=== PATIENT | female | born 1935 | race Asian ===

== ENCOUNTER 2019-01-31 15:26 | Emergency (ER) | payer MEDICAID, MEDICARE ==
[2019-01-31] MEDS ORDERED: ACETAMINOPHEN 325 MG TABLET PO STA (15:49)
--- NOTE | 2019-01-31 15:50 | ED Physician Documentation ---
PD HPI CHEST PAIN - Stated complaint Stated Complaint: ABD PX - Chief complaint Chief Complaint: Resp - History obtained from History obtained from: Patient, Family (daughter) - History of Present Illness Timing - onset: Yesterday (She has had sharp right-sided low chest pain that is worse with coughing and deep breathing since yesterday. She is somewhat short of breath with it. She denies calf pain or pedal edema. She does have a mild cough. No fevers. 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 : None HEENT: None Psych: None Musculoskeletal: None Derm: None - Past Surgical History Past Surgical History: No - Present Medications Home Medications: Ambulatory Orders Medication Instructions Recorded Confirmed No Known Home Medications 01/31/19 01/31/19 - Allergies Allergies/Adverse Reactions: Allergies Allergy/AdvReac Type Severity Reaction Status Date / Time No Known Drug Allergies Allergy Verified 01/31/19 15:40 - Social History Does the pt smoke?: No Smoking Status: Never smoker Does the pt drink ETOH?: No Does the pt have substance abuse?: No - Immunizations Immunizations are current?: Yes - POLST Patient has POLST: No PD ED PE NORMAL - Vitals Vital signs reviewed: Yes - General General: Alert and oriented X 3, No acute distress - HEENT HEENT: PERRL, EOMI - Neck Neck: Supple, no meningeal sign, No bony TTP - Cardiac Cardiac: RRR, No murmur - Respiratory Respiratory: No respiratory distress, Other (Tender to the right lower chest wall and clear crackles on the right base.) - Abdomen Abdomen: Non tender - Derm Derm: No rash - Extremities Extremities: No edema, No calf tenderness / cord - Neuro Neuro: Alert and oriented X 3, Normal speech Results - Vitals Vitals: Vital Signs - 24 hr 01/31/19 01/31/19 01/31/19 15:31 19:30 21:45 Temperature 36.6 C Heart Rate 109 H 92 92 Respiratory 16 16 16 Rate Blood Pressure 163/105 H 202/102 H 200/104 H O2 Saturation 96 98 94 Oxygen O2 Source Room air - Labs Labs: Laboratory Tests 01/31/19 01/31/19 01/31/19 16:00 16:00 16:00 WBC 8.3 RBC 4.12 L Hgb 12.4 Hct 37.8 MCV 91.5 MCH 30.0 MCHC 32.7 RDW 13.2 Plt Count 267 MPV 7.4 L Neut # (Auto) 6.5 Lymph # (Auto) 1.1 L [place] # (Auto) 0.6 Eos # (Auto) 0.1 Baso # (Auto) 0.0 Absolute Nucleated RBC 0.00 Nucleated RBC % 0.0 Sodium 136 Potassium 3.9 Chloride 99 L Carbon Dioxide 27 Anion Gap 10.0 BUN 8 Creatinine 0.7 Estimated GFR (MDRD) 80 L Glucose 140 H Lactic Acid 1.8 Calcium 8.7 Total Bilirubin 0.5 AST 113 H ALT 52 Alkaline Phosphatase 237 H Troponin I Total Protein 7.5 Albumin 3.5 Globulin 4.0 Albumin/Globulin Ratio 0.9 L Lipase 34 01/31/19 16:00 WBC RBC Hgb Hct MCV MCH MCHC RDW Plt Count MPV Neut # (Auto) Lymph # (Auto) [place] # (Auto) Eos # (Auto) Baso # (Auto) Absolute Nucleated RBC Nucleated RBC % Sodium Potassium Chloride Carbon Dioxide Anion Gap BUN Creatinine Estimated GFR (MDRD) Glucose Lactic Acid Calcium Total Bilirubin AST ALT Alkaline Phosphatase Troponin I < 0.04 Total Protein Albumin Globulin Albumin/Globulin Ratio Lipase - Rads (name of study) 2v chest Radiology: EMP read contemporaneously (chronic findings NAD) Ct A/P Radiology: EMP read contemporaneously (Mult liver metastases without primary source seen) abd sono Radiology: EMP read contemporaneously (Multiple solid liver masses largest measuring 7.6 cm most concerning for hepatic metastatic disease.) PD MEDICAL DECISION MAKING - ED course ED course: 83-year-old woman who presents with right chest pain/upper quadrant pain. On initial evaluation I thought it was most likely to be a pneumonia, but her x-ray is clear with a normal white count. Labs are notable for very modest elevation in her liver enzymes and alkaline phosphatase which increases the chance that this might be biliary in origin. On reexam and nation at 5:05 PM she really did not have any right upper quadrant tenderness but she is in line now for an ultrasound. She declines further pain medication at that juncture, she had already received Tylenol. The ultrasound demonstrated masses and this was followed by CT proving likely metastatic disease with unknown primary. The diagnosis was shared with the patient and her daughter. Follow-up arranged. 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 Olvin Flores physician's surgical dental assistant is aware of your case, they will get you into the clinic and arrange for oncology follow-up. Return if worse, for new symptoms, or if pain is uncontrolled. Discharge Date/Time: 01/31/19 21:48
[2019-01-31 16:14] LABS: BASOPHILS % (AUTO) 0.4 %; EOSINOPHILS # (AUTO) 0.1 10^3/uL (0.0-0.7); HGB - HEMOGLOBIN 12.4 g/dL (12.0-16.0); LYMPHOCYTES # (AUTO) 1.1 10^3/uL (1.5-3.5); LYMPHOCYTES % (AUTO) 12.8 %; MEAN CORPUSCULAR HGB CONC 32.7 g/dL (32.0-36.0); MEAN CORPUSCULAR VOLUME 91.5 fL (81.0-99.0); MEAN PLATELET VOLUME 7.4 fL (7.9-10.8); MONOCYTES # (AUTO) 0.6 10^3/uL (0.0-1.0); MONOCYTES % (AUTO) 7.1 %; NEUTROPHILS # (AUTO) 6.5 10^3/uL (1.5-6.6); NEUTROPHILS % (AUTO) 78.7 %; PLT - PLATELET COUNT 267 10^3/uL (130-450); RED BLOOD COUNT 4.12 10^6/uL (4.20-5.40); RED CELL DISTRIBUTION WIDTH 13.2 % (12.0-15.0); WHITE BLOOD COUNT 8.3 x10^3/uL (4.8-10.8)
[2019-01-31 16:29] LABS: ALBUMIN 3.5 g/dL (3.2-5.5); ALBUMIN/GLOBULIN RATIO 0.9 (1.0-2.2); BILIRUBIN,TOTAL 0.5 mg/dL (0.2-1.0); CALCIUM 8.7 mg/dL (8.5-10.3); CREATININE 0.7 mg/dL (0.4-1.0); TOTAL PROTEIN 7.5 g/dL (6.7-8.2)
--- NOTE | 2019-01-31 16:59 | XRAY Report ---
Reason: R Chest pain, clnical PNA Procedure Date: 01/31/2019 Accession Number: [id number] / [id number] Procedure: XR - Chest 2 View X-Ray CPT Code: 90206 FULL RESULT: EXAM: CHEST RADIOGRAPHY EXAM DATE: 01/31/2019 04:58 PM. CLINICAL HISTORY: R Chest pain, clinical PNA. COMPARISON: None. TECHNIQUE: 2 views. FINDINGS: Lungs/Pleura: Mild elevation of right hemidiaphragm. Atelectasis or scar in left base. No definite acute infiltrate, consolidation, effusion, or pneumothorax. Mediastinum: Mild to moderate cardiomegaly. Mildly ectatic aorta. Upper lobe vessels not distended. Other: Osteopenia, degenerative changes. Mild scoliosis. IMPRESSION: Chronic findings. No definite acute disease. RADIA
--- NOTE | 2019-01-31 19:55 | Ultrasound Report ---
Reason: RUQ pain with elev liver enz Procedure Date: 01/31/2019 Accession Number: [id number] / [id number] Procedure: US - Abdomen Limited CPT Code: FULL RESULT: EXAM: ABDOMEN ULTRASOUND LIMITED, RUQ EXAM DATE: 01/31/2019 07:41 PM. CLINICAL HISTORY: RUQ pain with elev liver enz. COMPARISON: None. TECHNIQUE: Real-time scanning was performed with static images obtained. FINDINGS: Liver: The liver parenchyma is heterogeneous. There are multiple solid-appearing hypoechoic masses within the liver. The largest of these lesions measures 7.4 x 7.6 x 7.1 cm. At least 7 lesions are identified by ultrasound. 13.6 cm. Main portal vein flow: Hepatopetal. Gallbladder: Normal. No stones, wall thickening, or sonographic Rodriguez's sign. Biliary System: CBD measures 5 mm. No intrahepatic or extrahepatic ductal dilatation. Other: The right kidney measures 9.2 x 3.8 cm. No hydronephrosis. No right upper quadrant free fluid. IMPRESSION: 1. Multiple solid liver masses, largest 7.6 cm. Most concerning for hepatic metastatic disease. If this is not previously known, recommend further characterization using abdominal pelvis CT. 2. No gallstones or findings of acute cholecystitis or biliary dilatation. RADIA
[2019-01-31] MEDS ORDERED: IOVERSOL 320 100 ML VIAL IVP ONE ×2 (20:12→20:42)
--- NOTE | 2019-01-31 21:13 | CT Report ---
Reason: abd/chest pain, sono concerning for liver mets Procedure Date: 01/31/2019 Accession Number: [id number] / [id number] Procedure: CT - Abdomen/Pelvis W CPT Code: FULL RESULT: EXAM: CT ABDOMEN AND PELVIS EXAM DATE: 01/31/2019 08:37 PM. CLINICAL HISTORY: Abd/chest pain, sono concerning for liver mets. COMPARISONS: CHEST ANGIO 01/31/2019 8:29 PM ABDOMEN LIMITED 01/31/2019 7:10 PM. TECHNIQUE: Routine helical CT imaging was performed through the abdomen and pelvis. IV contrast: 100 cc Optiray 320 IV. Enteric contrast: No. Reconstructions: Coronal and sagittal. In accordance with CT protocol optimization, one or more of the following dose reduction techniques were utilized for this exam: automated exposure control, adjustment of mA and/or KV based on patient size, or use of iterative reconstructive technique. FINDINGS: Lung Bases: There is no pleural effusion. Liver: There is a dominant heterogeneous density of the liver lesion which is centered in segment 8 but involves multiple segments. This largest lesion measures 80 x 53 x 74 mm. At least 16 discrete round hypodense lesions are visualized. The lesions are hypodense to liver parenchyma, without a surrounding hyperenhancing rim. The largest lesion in the left lobe is in segment 2 and measures 25 x 24 x 14 mm. The hepatic veins and portal veins are patent. There is no intrahepatic biliary dilatation. Gallbladder/Bile Ducts: Unremarkable. Spleen: Normal. Pancreas: Normal. Adrenal Glands: Normal. Kidneys: Normal. No masses or hydronephrosis. Peritoneal Cavity/Bowel: Small bowel is normal in caliber. There is an upper normal central mesenteric lymph node measuring 17 x 8 mm on series 5 image 46 located anterior to the aorta. There are other normal sized lymph nodes. There are mild number of scattered diverticula. There is questionable thickening of the sigmoid colon wall, although the colon is decompressed and this could be artifactual. There is no abnormal fluid collection. There are several clustered normal-sized mesenteric lymph nodes in the pelvis on image 61. Pelvic Organs: Uterus and ovaries appear normal in size. Urinary bladder is unremarkable. Vasculature: There is mild to moderate atherosclerotic vascular calcification. Bones: No fracture or destructive bone lesion. Other: None. IMPRESSION: 1. Multiple (16) liver lesions. Dominant lesion measures 8 cm in diameter. Most suspicious for liver metastasis. Liver abscesses can mimic metastases but are considered less likely. 2. Several nonspecific upper normal retroperitoneal and mesenteric lymph nodes are seen. 3. No definitive primary malignancy identified. The sigmoid colon wall does appear somewhat thickened which could be neoplastic, artifactual or inflammatory. RADIA
--- NOTE | 2019-01-31 21:27 | CT Report ---
Reason: PE protocol abd/chest pain, sono concerning Procedure Date: 01/31/2019 Accession Number: [id number] / [id number] Procedure: CT - ANGIO CHEST W/WO CPT Code: FULL RESULT: EXAM: CT ANGIOGRAM CHEST EXAM DATE: 01/31/2019 08:37 PM. CLINICAL HISTORY: Chest pain and abdomen pain. Abnormal abdominal ultrasound COMPARISON: ABDOMEN/PELVIS W/ 01/31/2019 8:29 PM. TECHNIQUE: Routine helical imaging was performed through the chest in the pulmonary arterial phase. IV Contrast: 100 cc Optiray 320 IV. Reconstructions: Coronal 3-D MIP reconstructions.Sagittal and coronal. In accordance with CT protocol optimization, one or more of the following dose reduction techniques were utilized for this exam: automated exposure control, adjustment of mA and/or KV based on patient size, or use of iterative reconstructive technique. FINDINGS: Pulmonary Arteries: Diagnostic quality: Adequate through the segmental arteries. Negative for acute pulmonary embolism to the segmental level. Lungs/Pleura: There is a 4 mm nonspecific left lower lobe lung nodule series 3 image 97. There is a 2 mm right upper lobe nodule image 34. There are several tiny 2-3 mm nodules in the right upper lobe on images 66, 67 and 69. There are patchy and linear densities in the right middle lobe and lingula. There is no pleural effusion. The trachea and central airways appear normal in caliber. Mediastinum: Heart size is normal. No pericardial effusion. No mediastinal or hilar lymphadenopathy. Thoracic Aorta: No thoracic aortic aneurysm or dissection. Upper Abdomen: Dictated in separate report Other: No fracture or destructive bony abnormality. IMPRESSION: 1. Negative for acute pulmonary embolism. 2. Several tiny 2-4 mm nonspecific pulmonary nodules. These nodules could be benign granulomas, small airways infection, or tiny metastatic foci. 3. No other significant acute abnormality within the chest. No aneurysm or dissection. RADIA
[2019-01-31 21:46] VITALS: BP 200/104
== END 2019-01-31 21:48 | disposition home or self-care (01) ==
LOC: ED 15:26
DX: C78.7 Secondary malignant neoplasm of liver and intrahepatic bile duct (principal); R10.11 Right upper quadrant pain; I10 Essential (primary) hypertension
CPT/HCPCS: 36415; 71046; 71275; 74177; 76705; 80053; 83605; 83690; 84484; 85025; 99283; 99284; A9270; Q9967

== ENCOUNTER 2019-02-15 13:38 | Outpatient (CLI) | payer MEDICARE ==
--- NOTE | 2019-02-16 08:31 | Mammography Report ---
Reason: SCREENING MAMMO Procedure Date: 02/15/2019 Accession Number: [id number] / [id number] Procedure: MGN - Screening Mammo Dig Bilat CPT Code: FULL RESULT: EXAM: Screening Mammo Dig Bilat DATE: 02/15/2019 2:09 PM CLINICAL HISTORY: Screening encounter. TECHNIQUE: (B) - Bilateral CC and MLO views were obtained. COMPARISON: Baseline mammogram. PARENCHYMAL PATTERN: (A) - The breast(s) demonstrate(s) scattered fibroglandular densities. FINDINGS: There are typically benign vascular calcifications. There are no suspicious masses, calcifications, or areas of distortion. IMPRESSION: Benign findings. BI-RADS category 2. RECOMMENDATION: (ANNUAL) - Recommend routine annual screening mammography. BI-RADS CATEGORY: (2) - Benign Findings. STANDARD QUALIFYING STATEMENTS: 1. This examination was not reviewed with the aid of Computer-Aided Detection (CAD). 2. A negative or benign imaging report should not preclude biopsy if clinically suspicious findings are present. 3. Dense breasts may obscure an underlying neoplasm. 4. This examination was reviewed without the aid of 3D breast imaging (tomosynthesis).
== END 2019-02-15 13:39 | disposition home or self-care (01) ==
LOC: DI.N 13:38
DX: Z12.31 Encounter for screening mammogram for malignant neoplasm of breast (principal)
CPT/HCPCS: 77067

== ENCOUNTER 2019-02-19 23:00 | Emergency (ER) | payer MEDICARE ==
--- NOTE | 2019-02-19 23:40 | ED Physician Documentation ---
History of Present Illness - Stated complaint Stated Complaint: NOT EATING/FEM - Chief complaint Chief Complaint: General - History obtained from History obtained from: Patient, Family - History of Present Illness Timing: Today Pain level now: 4 Improved by: no ameliorating factors Worsened by: no exacerbating factors Associated symptoms: dyspnea, profound weakness, loss of appetite - Additonal information Additional information: T+R from this ED 01/31; at that time, she c/o abdominal pain. ED note indicates she has not seen a doctor in several years, as she has been in good health and felt well. She had mild LFT abnormalities and CT A/P demonstrated multiple liver masses, CT chest revealed several tiny 2-4 mm nonspecific pulmonary nodules. She was discharged from ED and was subsequently seen in outpatient setting by local physician and was referred to hem/onc (has not been seen yet by oncology). Family called 911 tonight due to patient having worsening generalized weakness since this morning, gradually worsening dyspnea with occasional [employer] cough, and no appetite throughout the day with negligible PO intake all day. Medics report that patient had 78% room air pulse ox on their arrival, increased to mid 90s with NRB Review of Systems Constitutional: reports: Fatigue. denies: Fever, Chills, Sweats Eyes: reports: Reviewed and negative Ears: reports: Reviewed and negative Nose: reports: Reviewed and negative Cardiac: reports: Reviewed and negative Respiratory: reports: Dyspnea, Cough. denies: Hemoptysis, Wheezing GI: reports: Abdominal Pain. denies: Nausea, Vomiting, Constipation, Diarrhea : denies: Dysuria, Frequency Skin: reports: Reviewed and negative Musculoskeletal: reports: Reviewed and negative Neurologic: reports: Generalized weakness. 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 : None HEENT: None Psych: None Musculoskeletal: None Derm: None - Past Surgical History Past Surgical History: No - Present Medications Home Medications: Ambulatory Orders Medication Instructions Recorded Confirmed No Known Home Medications 01/31/19 01/31/19 - Allergies Allergies/Adverse Reactions: Allergies Allergy/AdvReac Type Severity Reaction Status Date / Time No Known Drug Allergies Allergy Verified 01/31/19 15:40 - Social History Does the pt smoke?: No Smoking Status: Never smoker Does the pt drink ETOH?: No Does the pt have substance abuse?: No - Immunizations Immunizations are current?: Yes - POLST Patient has POLST: No PD ED PE NORMAL - Vitals Vital signs reviewed: Yes - General General: Alert and oriented X 3, No acute distress, Well developed/nourished - HEENT HEENT: PERRL, EOMI, Other (dry mucous membranes) - Neck Neck: Supple, no meningeal sign - Cardiac Cardiac: No murmur - Abdomen Abdomen: Soft, Non tender, Non distended - Derm Derm: Normal color, Warm and dry - Extremities Extremities: No edema - Neuro Neuro: Alert and oriented X 3 Eye Opening: Spontaneous Motor: Obeys Commands Verbal: Oriented GCS Score: 15 PD ED PE EXPANDED - Cardiac Cardiac: Tachy, Regular Rhythm - Respiratory Respiratory: Other (tachypneic ). No: Wheezing, Rhonchi, Rales, Decreased breath sounds Results - Vitals Vitals: Vital Signs - 24 hr 02/19/19 02/19/19 02/19/19 23:26 23:29 23:59 Temperature 36.5 C Heart Rate 117 H 114 H 109 H Respiratory 24 23 22 Rate Blood Pressure 167/74 H 132/61 H 122/77 O2 Saturation 78 L 96 95 02/20/19 02/20/19 02/20/19 00:29 00:30 01:00 Temperature Heart Rate 102 H 102 H 106 H Respiratory 23 23 19 Rate Blood Pressure 116/75 116/75 115/52 L O2 Saturation 94 97 97 02/20/19 02/20/19 02/20/19 01:25 01:30 02:00 Temperature Heart Rate 106 H 105 H Respiratory 20 18 Rate Blood Pressure 118/52 L 119/78 O2 Saturation 84 L 98 97 02/20/19 02/20/19 02/20/19 02:30 03:00 03:30 Temperature Heart Rate 101 H 103 H 107 H Respiratory 19 19 20 Rate Blood Pressure 117/73 137/85 H 125/59 L O2 Saturation 98 98 97 02/20/19 02/20/19 02/20/19 04:00 04:17 04:30 Temperature Heart Rate 105 H 110 H Respiratory 27 H 18 Rate Blood Pressure 97/73 128/84 H O2 Saturation 98 86 L 96 02/20/19 02/20/19 02/20/19 05:00 05:30 06:00 Temperature 36.9 C Heart Rate 110 H 109 H 111 H Respiratory 23 26 H 23 Rate Blood Pressure 140/67 H 149/95 H 124/74 O2 Saturation 95 97 98 02/20/19 06:58 Temperature Heart Rate 101 H Respiratory 26 H Rate Blood Pressure 109/79 O2 Saturation 92 Oxygen O2 Source Oxymask Oxygen Flow Rate 6 - EKG (time done) No standard instances Rate: Rate (enter#) (109) Rhythm: Sinus tachycardia Kemp: Normal Intervals: Normal TX QRS: LVH Ischemia: Q waves (isolated III), Non specific changes (V1, V2) Compare to prior EKG: Old EKG unavailable - Labs Labs: Laboratory Tests 02/20/19 02/20/19 02/20/19 00:01 00:27 00:27 WBC 24.6 H RBC 4.25 Hgb 12.3 Hct 38.5 MCV 90.6 MCH 29.0 MCHC 32.0 RDW 15.2 H Plt Count 101 L MPV 9.4 Neut # (Auto) Not Reportable Lymph # (Auto) Not Reportable [place] # (Auto) Not Reportable Eos # (Auto) Not Reportable Baso # (Auto) Not Reportable Absolute Nucleated RBC Not Reportable Total Counted 100 Band Neuts % (Manual) 11 H Abnorm Lymph % (Manual) 0 Metamyelocytes % 1 H Myelocytes % 2 H Nucleated RBC % Not Reportable Neutrophils # (Manual) 20.7 H Lymphocytes # (Manual) 2.5 Monocytes # (Manual) 0.7 Eosinophils # (Manual) 0.0 Basophils # (Manual) 0.0 Nucleated RBCs 2 Differential Comment MANUAL DIFFERENTIAL Platelet Estimate NORMAL (130-450,000) RBC Morph Micro Appear NORMAL APPEARANCE PT 20.7 H INR 1.9 H APTT 32.0 Bld Gas Analysis Time Sample Site ABG pH ABG pCO2 ABG pO2 ABG HCO3 ABG Total CO2 ABG O2 Saturation ABG Base Excess Chance Test O2 Delivery Device O2 Liters/Min FiO2 Sodium Potassium Chloride Carbon Dioxide Anion Gap BUN Creatinine Estimated GFR (MDRD) Glucose Lactic Acid > 10.0 H* Calcium Total Bilirubin AST ALT Alkaline Phosphatase Troponin I B-Natriuretic Peptide Total Protein Albumin Globulin Albumin/Globulin Ratio Lipase Urine Color Urine Clarity Urine pH Ur Specific [place] Urine Protein Urine Glucose (UA) Urine Ketones Urine Occult Blood Urine Nitrite Urine Bilirubin Urine Urobilinogen Ur Leukocyte Esterase Urine RBC Urine WBC Ur Squamous Epith Cells Amorphous Sediment Urine Bacteria Urine Casts Ur Microscopic Review Urine Culture Comments Acetaminophen 02/20/19 02/20/19 02/20/19 00:27 00:27 00:27 WBC RBC Hgb Hct MCV MCH MCHC RDW Plt Count MPV Neut # (Auto) Lymph # (Auto) [place] # (Auto) Eos # (Auto) Baso # (Auto) Absolute Nucleated RBC Total Counted Band Neuts % (Manual) Abnorm Lymph % (Manual) Metamyelocytes % Myelocytes % Nucleated RBC % Neutrophils # (Manual) Lymphocytes # (Manual) Monocytes # (Manual) Eosinophils # (Manual) Basophils # (Manual) Nucleated RBCs Differential Comment Platelet Estimate RBC Morph Micro Appear PT INR APTT Bld Gas Analysis Time Sample Site ABG pH ABG pCO2 ABG pO2 ABG HCO3 ABG Total CO2 ABG O2 Saturation ABG Base Excess Chance Test O2 Delivery Device O2 Liters/Min FiO2 Sodium 138 Potassium 5.5 H Chloride 103 Carbon Dioxide 12 L* Anion Gap 23.0 H BUN 65 H Creatinine 2.0 H Estimated GFR (MDRD) 24 L Glucose 109 H Lactic Acid Calcium 8.4 L Total Bilirubin 4.9 H AST 696 H ALT 152 H Alkaline Phosphatase 588 H Troponin I 0.34 B-Natriuretic Peptide 683 H Total Protein 6.3 L Albumin 2.7 L Globulin 3.6 Albumin/Globulin Ratio 0.8 L Lipase 87 H Urine Color Urine Clarity Urine pH Ur Specific [place] Urine Protein Urine Glucose (UA) Urine Ketones Urine Occult Blood Urine Nitrite Urine Bilirubin Urine Urobilinogen Ur Leukocyte Esterase Urine RBC Urine WBC Ur Squamous Epith Cells Amorphous Sediment Urine Bacteria Urine Casts Ur Microscopic Review Urine Culture Comments Acetaminophen 02/20/19 02/20/19 02/20/19 00:27 01:30 02:35 WBC RBC Hgb Hct MCV MCH MCHC RDW Plt Count MPV Neut # (Auto) Lymph # (Auto) [place] # (Auto) Eos # (Auto) Baso # (Auto) Absolute Nucleated RBC Total Counted Band Neuts % (Manual) Abnorm Lymph % (Manual) Metamyelocytes % Myelocytes % Nucleated RBC % Neutrophils # (Manual) Lymphocytes # (Manual) Monocytes # (Manual) Eosinophils # (Manual) Basophils # (Manual) Nucleated RBCs Differential Comment Platelet Estimate RBC Morph Micro Appear PT INR APTT Bld Gas Analysis Time 0259 Sample Site RIGHT RADIAL ABG pH 7.39 ABG pCO2 26 L ABG pO2 96 ABG HCO3 15.1 L ABG Total CO2 15.9 L ABG O2 Saturation 97 ABG Base Excess -8.3 L Chance Test POSITIVE O2 Delivery Device NON REBREATHER MASK O2 Liters/Min 10.00 FiO2 100.00 Sodium Potassium Chloride Carbon Dioxide Anion Gap BUN Creatinine Estimated GFR (MDRD) Glucose Lactic Acid Calcium Total Bilirubin AST ALT Alkaline Phosphatase Troponin I B-Natriuretic Peptide Total Protein Albumin Globulin Albumin/Globulin Ratio Lipase Urine Color YELLOW Urine Clarity HAZY Urine pH 5.0 Ur Specific [place] >=1.030 H Urine Protein NEGATIVE Urine Glucose (UA) NEGATIVE Urine Ketones NEGATIVE Urine Occult Blood TRACE-INTA Urine Nitrite NEGATIVE Urine Bilirubin SMALL H Urine Urobilinogen 0.2 (NORMAL) Ur Leukocyte Esterase TRACE H Urine RBC 0-5 Urine WBC 4-5 Ur Squamous Epith Cells FEW Squamous Amorphous Sediment Moderate Urine Bacteria Few Urine Casts 11-25 Hyaline Casts Ur Microscopic Review INDICATED Urine Culture Comments INDICATED Acetaminophen < 10 L - Rads (name of study) cxr Radiology: Prelim report reviewed, See rad report CT head Radiology: Prelim report reviewed, See rad report PD MEDICAL DECISION MAKING - ED course Complexity details: reviewed old records, reviewed results, re-evaluated patient, considered differential, d/w patient, d/w family ED course: During ED stay, maintained mid-90s pulse ox with 10 liters oxygen via mask but would rapidly desaturate with attempts to decrease rate and/or when patient would remove mask (given ativan late in ED stay due to taking off the mask). She has marked changes in blood tests compared to previous ED visit, including leukocytosis, elevated LFTs including elevated bilirubin, elevated INR, elevated BUN/creatinine, hyperkalemia, and profoundly elevated lactate. There are no significant findings on tonight's CXR. D/W Dr. Woo (hospitalist at [facility]); recommends transfer to higher level of care if patient is full code. I discussed code status with patient and family, and my impression is that this concept has not been discussed nor considered with/by patient previously; patient indicates to me that, at this time, she does not want treatments withheld. Both [facility] and [facility] were contacted and indicated they have no beds available. I then d/w Dr. Ellsworth, towel stretcher at [facility], and he accepts patient for transfer. Departure - Departure Disposition: 02 Transfer Acute Care Hosp Clinical Impression: Multisystem organ failure Condition: Serious Discharge Date/Time: 02/20/19 07:06
[2019-02-20 00:42] LABS: INR 1.9 (0.8-1.2); PT - PROTHROMBIN TIME 20.7 secs (9.9-12.6)
[2019-02-20 00:45] LABS: BASOPHILS % (AUTO) 0.6 %; EOSINOPHILS % (AUTO) 0.2 %; HGB - HEMOGLOBIN 12.3 g/dL (12.0-16.0); LYMPHOCYTES % (AUTO) 8.2 %; MEAN CORPUSCULAR VOLUME 90.6 fL (81.0-99.0); MEAN PLATELET VOLUME 9.4 fL (7.9-10.8); MONOCYTES % (AUTO) 6.3 %; NEUTROPHILS % (AUTO) 84.7 %; PLT - PLATELET COUNT 101 10^3/uL (130-450); RED BLOOD COUNT 4.25 10^6/uL (4.20-5.40); RED CELL DISTRIBUTION WIDTH 15.2 % (12.0-15.0); WHITE BLOOD COUNT 24.6 x10^3/uL (4.8-10.8)
[2019-02-20 00:50] LABS: ABNORMAL LYMPHS % (MANUAL) 0 %
[2019-02-20 00:59] LABS: ALBUMIN 2.7 g/dL (3.2-5.5); ALBUMIN/GLOBULIN RATIO 0.8 (1.0-2.2); BILIRUBIN,TOTAL 4.9 mg/dL (0.2-1.0); CALCIUM 8.4 mg/dL (8.5-10.3); TOTAL PROTEIN 6.3 g/dL (6.7-8.2)
--- NOTE | 2019-02-20 01:08 | XRAY Report ---
Reason: dyspnea Procedure Date: 02/20/2019 Accession Number: [id number] / [id number] Procedure: XR - Chest 2 View X-Ray CPT Code: 73182 FULL RESULT: EXAM: CHEST RADIOGRAPHY EXAM DATE: 02/20/2019 12:47 AM. CLINICAL HISTORY: Dyspnea. COMPARISON: CHEST 2 VIEW 01/31/2019 4:58 PM. TECHNIQUE: 2 views. FINDINGS: Lungs/Pleura: Small lung volumes. Interstitial prominence is similar compared with the prior exam. No definite new alveolar consolidation or pleural effusion seen. No pneumothorax. Mediastinum: Mild cardiomegaly. Tortuous atherosclerotic aorta. Other: Osteopenia. IMPRESSION: 1. Small lung volumes with mild cardiomegaly and interstitial prominence, similar compared with the prior exam. RADIA
[2019-02-20 01:17] LABS: BAND NEUTROPHILS % (MANUAL) 11 %; DIFFERENTIAL COMMENT MANUAL DIFFERENTIAL; LYMPHOCYTES # (MANUAL) 2.5 10^3/uL (1.5-3.5); LYMPHOCYTES % (MANUAL) 10 %; METAMYELOCYTES % (MANUAL) 1 %; MONOCYTES # (MANUAL) 0.7 10^3/uL (0.0-1.0); MYELOCYTES % (MANUAL) 2 %; NEUTROPHILS # (MANUAL) 20.7 10^3/uL (1.5-6.6); NEUTROPHILS % (MANUAL) 73 %; PLATELET ESTIMATE, MANUAL NORMAL (130-450,000) (NORMAL); RBC MORPHOLOGY (MULTIPLE) NORMAL APPEARANCE (NORMAL)
--- NOTE | 2019-02-20 01:23 | CT Report ---
Reason: AMS Procedure Date: 02/20/2019 Accession Number: [id number] / [id number] Procedure: CT - HEAD WO CPT Code: FULL RESULT: EXAM: CT HEAD EXAM DATE: 02/20/2019 12:53 AM. CLINICAL HISTORY: Altered mental status. COMPARISON: None. TECHNIQUE: Multiaxial CT images were obtained from the foramen magnum to the vertex. Reformats: Sagittal and coronal. IV contrast: None. In accordance with CT protocol optimization, one or more of the following dose reduction techniques were utilized for this exam: automated exposure control, adjustment of mA and/or KV based on patient size, or use of iterative reconstructive technique. FINDINGS: Parenchyma: No intraparenchymal hemorrhage. No evidence of mass, midline shift, or CT findings of acute infarction. Elias-white differentiation is distinct. Mild diffuse chronic microangiopathic white matter changes are evident. Extraaxial Spaces: Normal for age. No subdural or epidural collections identified. Ventricles: The ventricles and cortical sulci are moderately enlarged, consistent with age-related tissue loss. Sinuses and orbits: Imaged paranasal sinuses, orbits, and mastoids show no significant abnormality. Bones: No evidence of fracture or calvarial defect. Other: Mild intracranial atherosclerosis is present. IMPRESSION: Generalized age-related cortical atrophic changes without evidence of acute intracranial abnormality. RADIA
[2019-02-20] MEDS ORDERED: SODIUM CHLORIDE 0.9% 500 ML IV STA (01:36)
[2019-02-20 01:51] LABS: GLUCOSE, URINE (UA) NEGATIVE (NEGATIVE); KETONES,URINE (UA) NEGATIVE (NEGATIVE); LEUKOCYTE ESTERASE, URINE TRACE (NEGATIVE); NITRITE,URINE NEGATIVE (NEGATIVE); OCCULT BLOOD,URINE TRACE-INTA (NEGATIVE); PROTEIN,URINE NEGATIVE (NEGATIVE); UROBILINOGEN,URINE 0.2 (NORMAL) E.U./dL (NORMAL)
[2019-02-20 01:52] LABS: CLARITY,URINE HAZY (CLEAR)
[2019-02-20 01:54] LABS: BILIRUBIN,URINE SMALL (NEGATIVE); ICTOTEST,URINE POSITIVE
[2019-02-20 01:58] LABS: BACTERIA,URINE Few /HPF (None Seen); RBC,URINE 0-5 /HPF (0-5); SQUAMOUS EPITHELIAL CELL,UR FEW Squamous (<= Few)
[2019-02-20 01:59] LABS: AMORPHOUS SEDIMENT,UR Moderate /LPF; CASTS, URINE 11-25 Hyaline Casts /LPF
[2019-02-20 03:15] LABS: ABG BASE EXCESS -8.3 mmol/L (-2.0-3.0); ABG HCO3 15.1 mmol/L (22.0-26.0); ABG OXYGEN SATURATION 97 % (94-98); ABG PCO2 26 mmHg (34-45); ABG PH 7.39 (7.35-7.45); ABG PO2 96 mmHg (80-100); ABG TCO2 15.9 MMOL/L (21.0-29.0)
[2019-02-20 03:16] LABS: ALLEN TEST POSITIVE
[2019-02-20] MEDS ORDERED: LORazepam 2 MG/ML VIAL IVP STA ×2 (05:34→06:39)
[2019-02-20] MEDS ORDERED: SODIUM CHLORIDE 0.9% 1,000 ML IV STA (05:34)
[2019-02-20 06:59] VITALS: BP 109/79
== END 2019-02-20 07:06 | disposition short-term general hospital (02) ==
LOC: ED 23:00
DX: R53.1 Weakness (principal); R10.9 Unspecified abdominal pain; R06.09 Other forms of dyspnea; E87.5 Hyperkalemia; D72.829 Elevated white blood cell count, unspecified; R79.1 Abnormal coagulation profile; R74.8 Abnormal levels of other serum enzymes; R79.89 Other specified abnormal findings of blood chemistry; I10 Essential (primary) hypertension; R00.0 Tachycardia, unspecified; I45.81 Long QT syndrome; I51.7 Cardiomegaly
CPT/HCPCS: 36415; 36600; 51701; 70450; 71046; 80053; 81001; 82803; 83605; 83690; 83880; 84484; 85025; 85610; 85730; 87086; 93005; 96361; 96374; 96376; 99285; J2060; 80307; 81003

== ENCOUNTER 2019-02-20 07:11 | Outpatient (CLI) | payer MEDICARE | END 2019-02-20 07:12 | disposition short-term general hospital (02) | LOC: EMS 07:11 | PROVIDERS: ATTEND Surgery | DX: R62.7 Adult failure to thrive (principal); R41.82 Altered mental status, unspecified | CPT/HCPCS: A0425; A0428 ==